=== PATIENT | male | born 1980 | race African-American/Black ===

== ENCOUNTER 2019-01-25 14:26 | Emergency (ER) | payer OTHER ==
[2019-01-25] MEDS ORDERED: cloNIDine HCL 0.1 MG TAB PO ONE (14:45)
[2019-01-25] MEDS ORDERED: KETOROLAC TROMETHAMINE INJ 30 MG/ML VIAL IM ONE (14:46)
--- NOTE | 2019-01-25 15:09 | RAD ---
EXAM DESCRIPTION: Chest,2 Views CLINICAL HISTORY: 38 years Male, left lateral chest pain COMPARISON: None. IMPRESSION: Heart size and pulmonary vascularity are within normal limits. The lungs are hyperexpanded. There is no airspace consolidation, pleural effusion, or pneumothorax. No acute osseous abnormality. Electronically signed by: Nii Woods MD 01/25/2019 3:06 PM CDT
--- NOTE | 2019-01-25 16:28 | ED.PDOC ---
History of Present Illness - General Chief Complaint: Chest Pain/IL Stated Complaint: hypertension, chest pain Time Seen by Provider: 01/25/19 14:32 Source: patient Exam Limitations: no limitations - History of Present Illness Initial Comments: the patient is a 38-year-old -[place]ish male presenting to emergency room in custody secondary to left lateral chest pain. He twisted or turned or did something earlier in the day and had a sharp pain to the left lateral rib cage. It is still there and reproducible with palpation. He does have a long-standing history of hypertension. His hypertension has historically been very poorly controlled according to him. No history of any coronary artery disease. No syncope or near syncope. Blood pressure was elevated when he was checked at the facility after he was hurting. Timing/Duration: 1-3 hours Severity: moderate Improving Factors: immobilization Worsening Factors: movement Allergies/Adverse Reactions: Allergies NO KNOWN ALLERGY Allergy (Verified 01/25/19 14:49) Home Medications: Ambulatory Orders Hydrochlorothiazide 12.5 mg PO DAILY 01/25/19 Lisinopril 20 mg PO DAILY 01/25/19 Lisinopril 40 mg PO DAILY #30 tab 01/25/19 amLODIPine BESYLATE [Norvasc] 5 mg PO DAILY 01/25/19 Review of Systems - Review of Systems Constitutional: States: no symptoms reported EENTM: States: no symptoms reported Respiratory: States: no symptoms reported Cardiology: States: chest pain Gastrointestinal/Abdominal: States: no symptoms reported Genitourinary: States: no symptoms reported Musculoskeletal: States: no symptoms reported Skin: States: no symptoms reported Neurological: States: no symptoms reported Endocrine: States: no symptoms reported All other Systems: No Change from Baseline Past Medical History (General) - Patient Medical History Hx Stroke: No Hx of COPD: No Hx Cardiac Disorders: No Hx Congestive Heart Failure: No Hx Hypertension: Yes Hx Diabetes: No Hx Gastroesophageal Reflux: No Surgical History: other Family Medical History - Family History Mother Family History: No Known Physical Exam - Physical Exam General Appearance: Alert, Anxious, No apparent distress Eye Exam: bilateral normal Ears, Nose, Throat: hearing grossly normal, normal ENT inspection, normal pharynx Neck: full range of motion, supple Respiratory: lungs clear, normal breath sounds, no respiratory distress, no accessory muscle use, other - left anterior lower lateral chest discomfort with palpation. Obvious muscle spasm. Pain is reproducible with palpationand with movement. 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, alert, normal mood/affect, oriented x 3 Skin Exam: normal color - multiple tattoos Comments: Vital Signs - 24 hr 01/25/19 01/25/19 01/25/19 14:26 14:27 15:27 Temperature 97.7 F 97.8 F Pulse Rate [ 57 L 59 L 54 L left brachial] Respiratory 18 18 16 Rate Blood Pressure 174/110 148/107 174/110 [right brachial ] O2 Sat by Pulse 98 99 98 Oximetry 01/25/19 15:52 Temperature Pulse Rate [ 51 L left brachial] Respiratory 16 Rate Blood Pressure 159/105 [right brachial ] O2 Sat by Pulse 99 Oximetry Progress - Progress Progress: 01/25/19 16:28 the patient's a 38-year-old male presenting to emergency room secondary to left- sided chest pain that is clinically most consistent with a strained or pulled intercostal muscle. He does need to do stretching to help reduce spasm in this area. He also needs to take big deep breaths to help prevent any atelectasis or pneumonia formation. he should expect some soreness in the area for the next week. Chest x-ray shows no evidence of any acute pathology of the ribs themselves or the lungs. EKG is reassuring as well, however does show some criteria for LVH related to his hypertension. The patient does have some poorly controlled hypertension. He did receive a dose of clonidine here. I'm going to increase his lisinopril from 20 mg a day to 40 mg a day. He does need to have his blood pressures followed. ER warnings are given. Departure - Departure Clinical Impression: Uncontrolled hypertension Intercostal muscle strain Qualifiers: Encounter type: initial encounter Qualified Code(s): S29.011A - Strain of muscle and tendon of front wall of thorax, initial encounter Disposition: Discharge to Home or Self Care Condition: Fair Departure Forms: ED Discharge - Pt. Copy, Patient Portal Self Enrollment Instructions: High Blood Pressure (DC), Muscle Strain (DC) Diet: regular diet Activity: increase activity as tolerated Prescriptions: Lisinopril 40 mg PO DAILY #30 tab Home Medications: Ambulatory Orders Hydrochlorothiazide 12.5 mg PO DAILY 01/25/19 Lisinopril 20 mg PO DAILY 01/25/19 Lisinopril 40 mg PO DAILY #30 tab 01/25/19 amLODIPine BESYLATE [Norvasc] 5 mg PO DAILY 01/25/19 Additional Instructions: the patient's a 38-year-old male presenting to emergency room secondary to left- sided chest pain that is clinically most consistent with a strained or pulled intercostal muscle. He does need to do stretching to help reduce spasm in this area. He also needs to take big deep breaths to help prevent any atelectasis or pneumonia formation. he should expect some soreness in the area for the next week. Chest x-ray shows no evidence of any acute pathology of the ribs themselves or the lungs. EKG is reassuring as well, however does show some criteria for LVH related to his hypertension. The patient does have some poorly controlled hypertension. He did receive a dose of clonidine here. I'm going to increase his lisinopril from 20 mg a day to 40 mg a day. He does need to have his blood pressures followed. ER warnings are given.
[2019-01-25 16:44] VITALS: BP 173/106; TEMP 97.3; O2SAT 100
== END 2019-01-25 16:43 | disposition home or self-care (01) ==
LOC: ER 14:26
DX: S29.011A Strain of muscle and tendon of front wall of thorax, initial encounter (principal); I10 Essential (primary) hypertension; R00.1 Bradycardia, unspecified; Z79.899 Other long term (current) drug therapy; X58.XXXA Exposure to other specified factors, initial encounter; Y92.9 Unspecified place or not applicable
CPT/HCPCS: 71046; 93005; J1885